=== PATIENT | female | born 1960 | race Caucasian/White ===

== ENCOUNTER 2016-10-20 15:29 | Emergency (ER) | payer MEDICARE, OTHER ==
--- NOTE | ~2016-10-20 | CR93 ---
[facility] A Service of [facility] RADIOLOGY TEXT RESULTS PATIENT: RICKI VILLEDA LOCATION: [facility] : 60 UNIT #: [id number] AGE: [address]: Ortiz Ritter MD SEX: F ORDER DR: [id number] [facility] [address] [place], [place] [address] [id number] P MR#: [id number] Acc #: [id number] NAME: RICKI VILLEDA : 1960 SEX: F STUDY DATE/TIME: 10/20/2016 13:01 UNIT: [facility] ROOM: STUDY DESCRIPTION: CR Elbow Min 3 Views Lt Attending Physician: Ortiz Ritter M.D. Ordering Physician: Adolfo Fernández M.D. Primary Care Physician: Generic Doctor Not In System MEDICAL IMAGING REPORT This report is preliminary unless electronic signature is present EXAM Left elbow, 10/20 INDICATION Elbow pain and redness since a fall at home in April 2016. FINDINGS 3 views of the left elbow were obtained. There is some spurring about the proximal ulna and coronoid process. No fracture is identified. The radial head is normal. There is no joint effusion. IMPRESSION Degenerative spurring on the medial side of the elbow. No acute findings. Dictated by... Attila Reynolds Jr., M.D. THIS IS AN ELECTRONICALLY VERIFIED REPORT Attila Reynolds Jr., M.D. at 10/20/2016 5:00 PM ALEXIS/juaquin TD: 10/20/2016 15:10 JOB #: [id number] MEDICAL IMAGING REPORT COPY
--- NOTE | ~2016-10-20 | CR181 ---
[facility] A Service of [facility] RADIOLOGY TEXT RESULTS PATIENT: RICKI VILLEDA LOCATION: [facility] : 60 UNIT #: [id number] AGE: [address]: Ortiz Ritter MD SEX: F ORDER DR: [id number] [facility] [address] [place], [place] [address] [id number] E MR#: [id number] Acc #: [id number] NAME: RICKI VILLEDA : 1960 SEX: F STUDY DATE/TIME: 10/20/2016 13:16 UNIT: [facility] ROOM: STUDY DESCRIPTION: CR Lumbar Spine 2 or 3 Views Attending Physician: Ortiz Ritter M.D. Ordering Physician: Adolfo Fernández M.D. Primary Care Physician: Generic Doctor Not In System MEDICAL IMAGING REPORT This report is preliminary unless electronic signature is present EXAM Lumbar spine 3-view series HISTORY Fell at home in April with pain in hips and back since then. FINDINGS Three views of the lumbar spine were obtained. There is an anterior osteophyte formation at L3-L4. There is no fracture or subluxation. IMPRESSION Degenerative changes at L3-L4, otherwise normal. Dictated by... Nikolas Amaya M.D. THIS IS AN ELECTRONICALLY VERIFIED REPORT Nikolas Amaya M.D. at 10/20/2016 3:59 PM FEL/to TD: 10/20/2016 15:51 JOB #: [id number] MEDICAL IMAGING REPORT COPY
[~2016-10-20 15:29] MED LIST: ALLERGY10 M1 PO; ARTHROTEC 501 TAB.EC PO; BUPROPION HCL150 M2 PO; BUPROPION HCL150 MG PO; COUMADIN5 MG PO; CYANOCOBALAM1000 MCG PO; DILANTIN PO; DIPHENOXYLATE/A1 TA2 PO; FERROUS SULFATE PO; FLUOXETINE HCL20 M1 PO; FOLIC ACID1 MG PO; HYDROCODONE-A1 UDTA2 PO; KEPPRA750 MG PO; LEVETIRACETAM500 MG PO; LEVOTHROID100 MC1 PO; LEVOTHYROXINE88 MCG PO; PHENOBARB; PHENYTOIN SODI100 M4 PO; SARAFEM20 MG PO; SYNTHROID; VITAL-D RX TABL1 TAB PO; VITAMIN D250000 UNIT PO; VITAMIN D50000 UNIT PO; VOLTAREN50 MG PO
== END 2016-10-20 15:54 | disposition home or self-care (01) ==
LOC: CED 15:29
DX: S50.02XA Contusion of left elbow, initial encounter (principal); S30.0XXA Contusion of lower back and pelvis, initial encounter; B36.0 Pityriasis versicolor; E11.9 Type 2 diabetes mellitus without complications; W01.0XXA Fall on same level from slipping, tripping and stumbling without subsequent striking against object, initial encounter; Y92.009 Unspecified place in unspecified non-institutional (private) residence as the place of occurrence of the external cause
CPT/HCPCS: 72100; 73080; 99284

== ENCOUNTER 2017-03-08 00:04 | Emergency (ER) | payer OTHER ==
[~2017-03-08] VITALS: Ht 162.6 cm; Wt 138.3 kg
--- NOTE | ~2017-03-08 | CR72 ---
[facility] A Service of [facility] & [facility] RADIOLOGY TEXT RESULTS PATIENT: RICKI VILLEDA LOCATION: [facility] : 60 UNIT #: [id number] AGE: [address]: Calin Mckay MD SEX: F ORDER DR: [id number] [facility] [address] [place], [place] [address] [id number] E MR#: [id number] Acc #: [id number] NAME: RICKI VILLEDA : 1960 SEX: F STUDY DATE/TIME: 03/08/2017 0:30 UNIT: [facility] ROOM: STUDY DESCRIPTION: CR Chest Single View Portable Attending Physician: Calin Mckay M.D. Ordering Physician: Calin Mckay M.D. Primary Care Physician: Generic Doctor Not In System MEDICAL IMAGING REPORT This report is preliminary unless electronic signature is present EXAM Portable chest INDICATIONS Shortness of air and weakness today. PROCEDURE Frontal view chest. COMPARISON STUDIES 12/25/2013 FINDINGS Heart size is unchanged. There is no new dense consolidation visible pleural fluid or pneumothorax. IMPRESSION No active process. No change from 12/25/2013. Stable cardiomegaly. Dictated by... Wallace Page M.D. THIS IS AN ELECTRONICALLY VERIFIED REPORT Wallace Page M.D. at 03/08/2017 10:24 PM ALBERT/analisa TD: 03/08/2017 08:02 JOB #: [id number] MEDICAL IMAGING REPORT Page 1 of 1 COPY
--- NOTE | ~2017-03-08 | EKG ---
PATIENT: RICKI VILLEDA UNIT #: [id number] Ventricular Rate: 91 BPM Atrial Rate: 91 BPM P-R Interval: 172 ms QRS Duration: 90 ms Q-T Interval: 402 ms QTC Calculation(Bezet): 494 ms P [place]: 59 degrees Calculated R [place]: 44 degrees Calculated T [place]: 30 degrees Diagnosis Line: Normal sinus rhythm Diagnosis Line: Prolonged QT Diagnosis Line: Abnormal ECG Diagnosis Line: When compared with ECG of 25-DEC-2013 07:10, Diagnosis Line: No significant change was found Diagnosis Line: Confirmed by FOUZIA TRIPATHI MD ([id number]) on Diagnosis Line: 03/08/2017 5:42:47 PM INTERPRETING MD: BHUMI ORR
[2017-03-08 01:09] LABS: BASOPHIL# 0.1 X10e3 (0-0.3); BASOPHIL% 0.4 % (0-2.5); EOSINOPHIL# 0.1 X10e3 (0-0.7); HEMATOCRIT 46.6 % (35.0-45.0); LYMPHOCYTE# 0.7 X10e3 (1.0-3.5); LYMPHOCYTE% 4.7 % (17.0-45.0); MEAN CORPUSCULAR HEMOGLOBIN 30.5 PG (28-34); MEAN CORPUSCULAR HGB CONC 32.2 g/dL (30-36); MEAN PLATELET VOLUME 10.4 FL (6.5-11.5); MONOCYTE# 0.9 X10e3 (0-1.0); MONOCYTE% 6.7 % (3.0-12.0); NEUTROPHIL# 12.3 X10e3 (1.5-7.1); NEUTROPHIL% 87.2 % (40-75); PLATELET COUNT 183 X10e3 (140-420); RED CELL DISTRIBUTION WIDTH 13.5 % (11.0-15.5); WHITE BLOOD COUNT 14.1 X10e3 (4.0-10.5)
[2017-03-08 01:12] LABS: DIFF IND NO
[2017-03-08 01:36] LABS: ALBUMIN SERUM 3.9 g/dL (3.5-5.0); BILIRUBIN, DIRECT 0.1 mg/dL (0.0-0.2); BILIRUBIN,INDIRECT 0.2 mg/dL (0.0-0.9); BILIRUBIN,TOTAL 0.3 mg/dL (0.2-2.0); CALCIUM SERUM 9.2 mg/dL (8.4-10.2); CREATININE SERUM 0.8 mg/dL (0.6-1.4); GLOM FILT RATE Estimated 81.9 mL/min (>60); POTASSIUM 3.6 mmol/L (3.5-5.1)
[2017-03-08 02:48] LABS: URINE SOURCE CLEAN CATCH
[2017-03-08 02:57] LABS: URINE APPEARANCE CLEAR; URINE BILIRUBIN NEG (NEG); URINE BLOOD 2+ (NEG); URINE COLOR YELLOW; URINE GLUCOSE NEG (NEG); URINE KETONE NEG (NEG); URINE LEUKOCYTE ESTERASE NEG (NEG); URINE NITRATE NEG (NEG); URINE PROTEIN 1+ (NEG); URINE SPECIFIC GRAVITY 1.038 (1.003-1.035)
[2017-03-08 03:00] LABS: URBCS1 AUWI 25-50 /[HPF] (0-2); URINE BACTERIA AUWI NEG (NEGATIVE); URINE SQUAMOUS EPITHELIAL CELL FEW /[HPF]; UWBCS1 AUWI 0-2 (0-5)
[2017-03-08 03:10] LABS: CULTURE INDICATED? NO; URINE GRANULAR CAST 0-2 /[HPF]; URINE MUCUS PRESENT
== END 2017-03-08 05:05 | disposition home or self-care (01) ==
LOC: CED 00:04
PROVIDERS: Emergency Medicine
DX: R53.1 Weakness (principal); E11.9 Type 2 diabetes mellitus without complications; Z98.890 Other specified postprocedural states
CPT/HCPCS: 36415; 71010; 80048; 80076; 81003; 85025; 93005; 96360; 99285